=== PATIENT | female | born 1995 | race Caucasian/White ===

== ENCOUNTER 2017-07-17 19:12 | Emergency (ER) | payer BC ==
[2017-07-17 19:28] VITALS: BP 109/55; PULSE 79; RESP 18; TEMP 98.4; O2SAT 100
--- NOTE | 2017-07-17 20:39 | PD ---
HPI Chief Complaint: Respiratory Symptoms Time Seen by Provider: 20:38 Travel History International Travel<30 days: No Contact w/Intl Traveler<30days: No Traveled to known affect area: No History of Present Illness HPI 22-year-old female came to the emergency room with history of right rib cage pain for past 1 week. Patient says that she has had a cough for almost a month. She was given a course of antibiotic at an urgent care for sinus infection which made her greenish phlegm get better to whitish color sputum when she coughs. But the cough is still there. She has had bronchitis in the past. For past 1 week she has been hurting on the right side of her rib cage especially with a deep breath or any movement of her arms or trying to sit up or lay back. Patient has taken Advil sporadically for this pain without much relief. She works and today she was having trouble working and moving too much because of the pain. Her boyfriend drove her to the emergency room. Vital signs are stable. She is otherwise a healthy person. No history of smoking. No history of previous DVT or PEs. No history of prolonged immobilization. She says today the pain has started to radiate to her back as well. She is not sure if it is a pinched nerve. PFSH Past Medical History Narrative Medical List of her past medical, surgical, social and family history is reviewed from the nursing note. Medical History: Denies Significant Hx ?: Unknown LMP: 07/02/17 Past Surgical History Surgical History: No Previous Surgery Social History Alcohol Use: No Tobacco Use: No Allergies-Medications (Allergen,Severity, Reaction): Coded Allergies: No Known Allergies (Unverified , 07/17/17) Comments No known drug allergies. Reported Meds & Prescriptions Reported Meds & Active Scripts Active Flexeril (Cyclobenzaprine HCl) 5 Mg Tab 5 Mg PO TID Ibuprofen 600 Mg Tab 600 Mg PO Q6H PRN Reported [ con] PO Narrative Medication List of her home medications reviewed from the nursing note. Review of Systems Except as stated in HPI: all other systems reviewed are Neg Musculoskeletal: Positive: Pain Physical Exam Narrative GENERAL: Awake, alert, mild distress SKIN: Focused skin assessment warm/dry. HEAD: Atraumatic. Normocephalic. EYES: Pupils equal and round. No scleral icterus. No injection or drainage. ENT: No nasal bleeding or discharge. Mucous membranes pink and moist. NECK: Trachea midline. No JVD. CARDIOVASCULAR: Regular rate and rhythm. No murmur appreciated. RESPIRATORY: No accessory muscle use. Clear to auscultation. Breath sounds equal bilaterally. GASTROINTESTINAL: Abdomen soft, non-tender, nondistended. Hepatic and splenic margins not palpable. MUSCULOSKELETAL: No obvious deformities. No clubbing. No cyanosis. No edema. NEUROLOGICAL: Awake and alert. No obvious cranial nerve deficits. Motor grossly within normal limits. Normal speech. PSYCHIATRIC: Appropriate mood and affect; insight and judgment normal. Data Data Last Documented VS Vital Signs Date Time Temp Pulse Resp B/P (MAP) Pulse Ox O2 Delivery O2 Flow Rate FiO2 07/17/17 22:26 16 07/17/17 19:28 98.4 79 109/55 (73) 100 Orders Orders Chest, Pa & Lat (07/17/17 ) Ketorolac Inj (Toradol Inj) (07/17/17 21:15) Orphenadrine Inj (Norflex Inj) (07/17/17 21:15) Acetamin-Hydrocod 325-5 Mg ([place] 5-325 (07/17/17 21:15) Ed Discharge Order (07/17/17 22:27) Ondansetron Odt (Zofran Odt) (07/17/17 22:45) MDM Medical Decision Making Medical Screen Exam Complete: Yes Emergency Medical Condition: Yes Medical Record Reviewed: Yes Differential Diagnosis Muscle strain, pneumothorax, rib fracture Narrative Course 10:23 PM x-ray chest is within normal limits. Patient was medicated for pain. Upon reassessment she says being feels better. She will be discharged home. Procedures EKG Prior to Arrival: No Diagnosis Primary Impression: Anterior chest wall pain Referrals: [facility] 3 days Additional Instructions: Take the medication as per the prescription direction. Return to the ER if condition worsens or any other new concerns. Warm compresses alternating with cold compresses will also bring some relief. You can follow-up at the [facility]. Med/Other Pt SpecificInfo: Prescription(s) given Scripts Cyclobenzaprine (Flexeril) 5 Mg Tab 5 MG PO TID for Muscle Spasm, #15 TAB 0 Refills Prov: Sarah Iqbal MD 07/17/17 Ibuprofen (Ibuprofen) 600 Mg Tab 600 MG PO Q6H Y for Pain/Inflammation, #40 TAB 0 Refills Prov: Sarah Iqbal MD 07/17/17 Disposition: 01 DISCHARGE HOME Condition: Stable Sarah Iqbal MD Jul 17, 2017 20:38
[2017-07-17] MEDS ORDERED: [UNRECOGNIZED DRUG - OTHER] PO (21:00)
[2017-07-17] MEDS ORDERED: KETOROLAC TROMETHAMINE 60 MG/2 ML (IM) VIAL IM ONE (21:15)
[2017-07-17] MEDS ORDERED: ORPHENADRINE INJ 60 MG/2 ML AMP IM ONE (21:15)
[2017-07-17] MEDS ORDERED: ACETAMINOPHEN/HYDROcodone 325 MG/5 MG TAB PO ONE (21:15)
--- NOTE | 2017-07-17 21:27 | RADRPT ---
EXAM DATE: 07/17/2017 9:23 PM EDT AGE/SEX: 22 years / Female INDICATIONS: Right sided rib pain. No prior trauma. CLINICAL DATA: This is the patient's initial encounter. Patient reports that signs and symptoms have been present for 1 week and indicates a pain score of 8/10. MEDICAL/SURGICAL HISTORY: None. None. COMPARISON: No prior [place] exams available for comparison. FINDINGS: PA and lateral views of the chest demonstrate the lungs to be symmetrically aerated without evidence of mass, infiltrate or effusion. The cardiomediastinal contours are unremarkable. Osseous structures are intact. CONCLUSION: Negative examination. Electronically signed by: Dimitry Ford MD 07/17/2017 9:25 PM EDT
[2017-07-17 22:26] VITALS: RESP 16
[2017-07-17] MEDS ORDERED: CYCL5TAB PO (22:26)
[2017-07-17] MEDS ORDERED: IBUP-232 PO (22:26)
[2017-07-17] MEDS ORDERED: ONDANSETRON ODT 4 MG TAB PO ONE (22:45)
== END 2017-07-17 23:04 | disposition home or self-care (01) ==
LOC: NEPD 19:12
DX: R07.89 Other chest pain (principal)
CPT/HCPCS: 71046; 96372; 99283; J1885; J2360